=== PATIENT | male | born 1990 | race Asian ===

== ENCOUNTER 2019-04-25 17:07 | Emergency (ER) | payer MEDICAID ==
[~2019-04-25] VITALS: Ht 170.2 cm; Wt 77.1 kg
[2019-04-25 17:11] VITALS: BP_SYST 140
[2019-04-25] MEDS ORDERED: KETOROLAC TROMETHAMINE 60 MG/2 ML VIAL IM ONE (18:45)
== END 2019-04-25 19:13 | disposition left against medical advice (07) ==
LOC: EDBD 17:07 → SED 17:07
DX: S09.90XA Unspecified injury of head, initial encounter (principal); W16.522A Jumping or diving into swimming pool striking bottom causing other injury, initial encounter; Y93.11 Activity, swimming; Y92.34 Swimming pool (public) as the place of occurrence of the external cause; Y99.8 Other external cause status
CPT/HCPCS: 96372; 99283; J1885